=== PATIENT | female | born 1975 | race Hispanic/Latino ===

== ENCOUNTER 2016-08-19 15:20 | Inpatient (IN) | payer MEDICAID, OTHER ==
[2016-08-19 16:16] LABS: BASO % 0.3 % (0.0-2.0); EOS % 0.7 % (0.0-4.0); HEMATOCRIT 37.3 % (34.0-47.0); LYMPH # 3.1 K/uL (1.0-4.3); LYMPH % 47.1 % (20.0-40.0); MEAN CELL VOLUME 85.4 fL (81.0-99.0); MEAN CORPUSCULAR HEMOGLOBIN 27.6 pg (27.0-31.0); MEAN CORPUSCULAR HGB CONC 32.3 g/dL (33.0-37.0); MEAN PLATELET VOLUME 8.6 fL (7.2-11.7); MONO # 0.4 K/uL (0.0-0.8); MONO % 6.3 % (0.0-10.0); RED CELL DISTRIBUTION WIDTH 14.2 % (11.5-14.5); WHITE BLOOD COUNT 6.6 K/uL (4.8-10.8)
[2016-08-19 16:22] LABS: CHLORIDE 99 mmol/L (98-107); SODIUM 138 mmol/L (132-148)
[2016-08-19 16:23] LABS: POTASSIUM 3.1 mmol/L (3.6-5.2); URINE BACTERIA RARE (<OCC); URINE BILIRUBIN NEGATIVE (NEGATIVE); URINE BLOOD NEGATIVE (NEGATIVE); URINE COLOR Colorless (YELLOW); URINE GLUCOSE (UA) NORMAL (Normal); URINE KETONE NEGATIVE (NEGATIVE); URINE LEUKOCYTE ESTERASE NEG Leu/uL (Negative); URINE PROTEIN NEGATIVE (NEGATIVE); URINE UROBILINOGEN NORMAL mg/dL (0.2-1.0); WBC URINE < 1 /hpf (0-5)
[2016-08-19 16:25] LABS: ALB/GLOB RATIO 1.2 (1.0-2.1); ALKALINE PHOSPHATASE 86 U/L (38-126); ALT/SGPT 54 U/L (9-52); AST/SGOT 36 U/L (14-36); BILIRUBIN,TOTAL 0.2 mg/dL (0.2-1.3); BLOOD UREA NITROGEN 5 mg/dL (7-17); CARBON DIOXIDE 24 mmol/L (22-30); GFR AFRICAN-AMERICAN > 60; GLUCOSE,RANDOM 87 mg/dL (65-105); TOTAL PROTEIN 7.7 g/dL (6.3-8.3)
[2016-08-19 16:26] LABS: ALCOHOL SERUM < 10 mg/dl (0-10); CALCIUM 8.8 mg/dl (8.6-10.4)
--- NOTE | 2016-08-19 16:52 | C.PDOC ---
History Of Present Illness 40 y/o female presents to the ED requesting opiate detox. Pt is prescreened. States she uses pills, last use today. Pt was admitted here 03/2016 for the same but continued to use after discharge. Pt has no complaints at this time. Time Seen by Provider: 08/19/16 15:54 Chief Complaint (Nursing): Substance Abuse History Per: Patient History/Exam Limitations: no limitations Suicide/Self Injury Attempted (Context): None Modifying Factor(s): Narcotics Severity: Mild Involuntary Hold By: None Recent travel outside of the [place]: No Past Medical History Reviewed: Historical Data, Nursing Documentation, Vital Signs Vital Signs: Last Vital Signs Temp 99.1 F 08/19/16 18:06 Pulse 78 08/19/16 18:06 Resp 18 08/19/16 18:06 BP 108/75 08/19/16 18:06 Pulse Ox 98 08/19/16 18:12 - Medical History PMH: Anemia, Anxiety, Asthma, Hypothyroidism Surgical History: Cholecystectomy - [facility] Procedures ANESTH INJEC PERIPH NERV (07/19/13) CERVICAL SPINE X-RAY NEC (07/19/13) DETOXIFICATION SERVICES FOR SUBSTANCE ABUSE TREATMENT (04/02/16) GROUP MIXED CROP AND LIVESTOCK FARM WORKER FOR SUBSTANCE ABUSE TREATMENT, PSYCHOEDUCATION (04/02/16) IMMOBILIZ/WOUND ATTN NEC (01/05/13) INJECT STEROID (07/19/13) INJECT/INFUSE NEC (09/19/14) LAPAROSCOPIC CHOLECYSTECTOMY (09/01/13) PERIPH NERVE INJECT NEC (07/19/13) PSYCHIA INTERV/EVAL NEC (06/26/13) Family History: States: Unknown Family Hx - Social History Hx Tobacco Use: No Hx Alcohol Use: No Hx Substance Use: Yes - Immunization History Hx Tetanus Toxoid Vaccination: No Hx Influenza Vaccination: No Hx Pneumococcal Vaccination: Yes Review Of Systems Except As Marked, All Systems Reviewed And Found Negative. Physical Exam - Physical Exam Appears: Non-toxic, No Acute Distress Skin: Warm, Dry, No Rash Head: Atraumatic, Normacephalic Chest: Symmetrical Cardiovascular: Rhythm Regular, No Murmur Respiratory: Normal Breath Sounds, No Rales, No Rhonchi, No Wheezing Gastrointestinal/Abdominal: Soft Extremity: Bilateral: Atraumatic Neurological/Psych: Oriented x3, Normal Speech ED Course And Treatment - Laboratory Results Result Diagrams: 08/19/16 16:04 08/19/16 16:04 Lab Interpretation: Normal O2 Sat by Pulse Oximetry: 98 (on room air) Pulse Ox Interpretation: Normal Progress Note: Plan: medically clear for admission; labs, UA - Physician Consult Information Physician Contacted: Bernardo Shearer Outcome Of Conversation: admit Disposition Discussed With : Bernardo Shearer Doctor Will See Patient In The: Hospital - Disposition Disposition: HOSPITALIZED Disposition Time: 18:15 Condition: STABLE - POA Present On Arrival: None - Clinical Impression Clinical Impression: Drug abuse, Drug dependence, Opioid dependence - PA / INCIDENT ANALYST / Resident Statement MD/DO has reviewed & agrees with the documentation as recorded. - Scribe Statement The provider has reviewed the documentation as recorded by the Carlosibsolitario Deras All medical record entries made by the Carlosibsolitario were at my direction and personally dictated by me. I have reviewed the chart and agree that the record accurately reflects my personal performance of the history, physical exam, medical decision making, and the department course for this patient. I have also personally directed, reviewed, and agree with the discharge instructions and disposition. Decision To Admit - Pt Status Changed To: Hospital Disposition Of: Inpatient - Admit Certification Admit to Inpatient:: After my assessment, the patient will require hospitalization for at least two midnights. This is because of the severity of symptoms shown, intensity of services needed, and/or the medical risk in this patient being treated as an outpatient. - InPatient: Physician Admission Certification: I certify that this patient requires 2 or more midnights of care for the following reason:: opioid use disorder - . Bed Request Type: Detox Admitting Physician: Bernardo Shearer Patient Diagnosis: Drug abuse, Drug dependence, Opioid dependence
[2016-08-19] MEDS ORDERED: Potassium Chloride 20 mEq ER Tab PO STA (18:30)
[2016-08-19] MEDS ORDERED: Albuterol HFA 90 mcg/actuation (8 g) INH PRN (21:16)
[2016-08-19] MEDS ORDERED: Aluminum Hydroxide/Magnesium Hydroxide Susp (30 mL) PO PRN (21:55)
--- NOTE | 2016-08-20 16:31 | PCM.PSYCH ---
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 Patient reported she takes Fioricet 10 tablets daily, tramadol 10 tablets daily, each of 50 mg and also Tylenol plus codeine number for takes 10 tablets daily. Patient reports that she finish her medication and 5-6 days. She gets prescription for 2 weeks for each medication but she finish them and 5-6 days. Now she wants to stop using these medications as she is tired of taking these pills. Patient reported that before starting Tylenol or other medications she was prescribed Percocet after her foot surgery but later Percocet was stopped and put her on current medications but she started using them more than prescribed. Patient also reported history of depression and anxiety for last 3-4 years. She was following up at [facility]. Later patient stopped coming to [facility] and her case was closed. Reported she was getting Xanax and Effexor. No patient reports that her sleep is up and down, with decreased appetite and she lost about 75 pounds in over one year. Denied any current or past suicidal homicidal ideations or any suicidal attempts. Denied any psychotic or manic symptoms. Patient was born in [facility], migrated to [facility] at the age of 12 years. 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 She is and has 2 children aged 23 and 14 lives with the patient. Patient lives with her . Her height is 4 feet 11 inches and weight 145 pounds. Current Medications: Active Medications Generic Name Dose Route Start Last Admin Trade Name Freq PRN Reason Stop Dose Admin Al Hydrox/Mg Hydrox/Simethicone 30 ml 08/19/16 21:55 Maalox 30 Ml PO TID PRN Indigestion / Heartburn Albuterol 1 puff 08/19/16 21:16 Ventolin Hfa 90 Mcg/Actuation (8 G) INH RQ6 PRN Shortness of Breath Clonidine HCl 0.1 mg 08/19/16 21:55 Catapres PO Q8 PRN COWS Score More or Equal to 5 Gabapentin 300 mg 08/20/16 18:00 Neurontin PO BID OSWALDO Hydroxyzine HCl 25 mg 08/19/16 21:56 08/20/16 09:47 Atarax PO 25 mg Q6 PRN Administration Agitation Ibuprofen 600 mg 08/20/16 14:49 08/20/16 14:58 Motrin Tab PO 600 mg Q6 PRN Administration moderate pain Loperamide HCl 2 mg 08/19/16 21:55 Imodium PO Q8 PRN Diarrhea Methadone HCl 15 mg 08/21/16 10:30 Methadone PO 08/21/16 10:31 ONCE ONE Ondansetron HCl 4 mg 08/19/16 21:55 08/20/16 09:47 Zofran Tab PO 4 mg Q8 PRN Administration Nausea/Vomiting Pantoprazole Sodium 40 mg 08/20/16 16:30 Protonix Ec Tab PO DAILY OSWALDO Promethazine HCl 25 mg 08/19/16 21:55 Phenergan Inj IM QID PRN Nausea/Vomiting, Unable PO Trazodone HCl 100 mg 08/19/16 22:00 08/19/16 22:10 Desyrel PO 100 mg HS OSWALDO Administration Past Psychiatric History - Past Psychiatric History Previous Treatment History: Inpatient Prior Professional Help: 2 previous detox At [facility]: [facility] History of Abuse: None reported History of ETOH/Drug Use: See HPI History of Family Illness: Reported her nephew uses heroine and cocaine Pertinent Medical Hx (Current Medical&Sleep Prob, Allergies): Allergies Allergy/AdvReac Type Severity Reaction Status Date / Time No Known Allergies Allergy Verified 04/02/16 11:02 No Known Home Med 08/19/16 Asthma Hypothyroidism GERD Review of Systems - Psychiatric Psychiatric: Depression Mental Status Examination - Personal Presentation Personal Presentation: Looks stated age - Affect Affect: Depressed - Motor Activity Motor Activity: Calm - Reliability in Providing Information Reliability in Providing Information: Fair - Speech Speech: Organized - Mood Mood: Depressed - Formal Thought Process Formal Thought Process: No Impairment - Hallucinations/Delusions Hallucinations: Other (None reported) Delusions: Other - Obsessions/Compulsions Obsessions: None Compulsions: None - Cognitive Functions Orientation: Person, Place, Situation, Time Sensorium: Alert Attention/Concentration: Attentive Abstract Thinking: [place] Estimate of Intelligence: Average Judgement: Intact, as evidence by: Insight regarding need for hospitalization Memory: Recent intact, as evidence by: 3 object recall, Remote intact, as evidenced by: Ability to recall historical events - Risk Risk: Withdrawal, Diminished functioning - Strength & Assets Inventory Strength & Assets Inventory: Family support, Employment history, Cooperative - Limitations Limitations: Other DSM 5 DX - DSM 5 DSM 5 Diagnosis: Opiate use disorder - Recommended/Plan of Treatment Treatment Recommendations and Plan of Treatment: Patient education Supportive therapy We'll start methadone taper as patient preference methadone over Subutex Other when necessary medications Patient wants to go [facility] for follow-up care after discharge from the hospital. Patient reported in the past she was in [facility] Projected ELOS: 4-5 days Prognosis: Average - Smoking Cessation Smoking Cessation Initiated: No Reason for not providing: Patient doesn't smoke cigarettes
[2016-08-20] MEDS: Pantoprazole 40 mg EC Tab PO SCH (17:27)
[2016-08-21] MEDS: Pantoprazole 40 mg EC Tab PO SCH (09:11)
--- NOTE | 2016-08-21 12:36 | PCM.PYCHPN ---
Psychiatric Progress Note - Psychiatric Progress Note Patient seen today, length of contact: 15 minutes Patient Chief Complaint: I'm feeling much better Problems Identified/Issues Discussed: Patient seen. Chart reviewed. Case discussed with the staff. Issues related to illness and treatment were discussed with the patient. Reported compliant with treatment with no adverse affects. Tolerating treatment very well. Very mild withdrawal symptoms. At the time of evaluation, patient was awake alert oriented 3, had no delusions, no auditory or visual hallucinations, no suicidal ideations or homicidal ideations. Medical Problems: Migraine headache GERD Asthma Diagnostic Results: Reviewed DSM 5 Symptoms Update: Some improvement with treatment Medication Change: No Medical Record Reviewed: Yes Mental Status Examination - Cognitive Function Orientation: Person, Place, Situation, Time Memory: Intact Attention: WNL Concentration: WNL Association: WNL Fund of Knowledge: [facility] Decription of patient's judgement and insights: Fair - Mood Mood: Depressed (Much less than before) - Affect Affect: Depressed - Speech Speech: Appropriate - Formal Thought Process Formal Thought Process: No Impairment Psychotic Thoughts and Behaviors: None - Suicidal Ideation Suicidal Ideation: No - Homicidal Ideation Homicidal Ideation: No Goal/Treatment Plan - Goal/Treatment Plan Need for Continued Stay: Remain at risks for inpatient hospitalization, Discharge may exacerbated symptoms, Severe functional impairment Progress Toward Problem(s) and Goals/Treatment Plan: Patient education Supportive therapy Continue treatment as before Patient wants to go [facility] for follow-up care after discharge from the hospital. Patient reported in the past she was in [facility] Estimated Date of D/C: 08/24/16 - Smoking Cessation Smoking Cessation Initiated: No
[2016-08-22] MEDS: Pantoprazole 40 mg EC Tab PO SCH (09:48)
[2016-08-23] MEDS: Pantoprazole 40 mg EC Tab PO SCH (09:16)
--- NOTE | 2016-08-23 21:16 | PCM.PYCHPN ---
Psychiatric Progress Note - Psychiatric Progress Note Patient seen today, length of contact: 16 min Patient Chief Complaint: I am anxious Problems Identified/Issues Discussed: relapse prevention Medical Problems: nothing acute Diagnostic Results: reviewed DSM 5 Symptoms Update: some anxiety no mylagias or arthralgias Medication Change: Yes (methadone taper) Medical Record Reviewed: Yes Mental Status Examination - Cognitive Function Orientation: Place, Situation, Time Memory: Intact Attention: WNL Concentration: WNL Association: WNL Fund of Knowledge: WNL - Mood Mood: Anxious - Affect Affect: Blunted - Speech Speech: Appropriate - Formal Thought Process Formal Thought Process: No Impairment - Suicidal Ideation Suicidal Ideation: No - Homicidal Ideation Homicidal Ideation: No Goal/Treatment Plan - Goal/Treatment Plan Need for Continued Stay: Discharge may exacerbated symptoms, Severe functional impairment Progress Toward Problem(s) and Goals/Treatment Plan: opiate withdrawal- methadone taper opiate use disorder-groups, supportive psychotherapy NMI CBT Estimated Date of D/C: 08/24/16 - Smoking Cessation Smoking Cessation Initiated: No
--- NOTE | 2016-08-23 21:20 | PCM.PYCHPN ---
Psychiatric Progress Note - Psychiatric Progress Note Patient seen today, length of contact: 16 min Patient Chief Complaint: Ii am having trouble sleeping Problems Identified/Issues Discussed: PAWS Medical Problems: nothing acute Diagnostic Results: reviewed DSM 5 Symptoms Update: insomnia Medication Change: Yes (methadone taper) Medical Record Reviewed: Yes Mental Status Examination - Cognitive Function Orientation: Person, Place, Situation, Time Memory: Intact Attention: WNL Concentration: WNL Association: WNL Fund of Knowledge: WNL - Mood Mood: Anxious - Affect Affect: Blunted - Speech Speech: Appropriate - Formal Thought Process Formal Thought Process: No Impairment - Suicidal Ideation Suicidal Ideation: No - Homicidal Ideation Homicidal Ideation: No Goal/Treatment Plan - Goal/Treatment Plan Need for Continued Stay: Remain at risks for inpatient hospitalization, Discharge may exacerbated symptoms, Severe functional impairment Progress Toward Problem(s) and Goals/Treatment Plan: opiate withdrawal- methadone taper opiate use disorder-groups, supportive psychotherapy NMI CBT Estimated Date of D/C: 08/24/16 - Smoking Cessation Smoking Cessation Initiated: No
[2016-08-24 08:52] VITALS: BP 110/77; PULSE 81; RESP 16; TEMP 98.1; O2SAT 99
[2016-08-24] MEDS: Pantoprazole 40 mg EC Tab PO SCH (09:27)
--- NOTE | 2016-08-24 09:57 | PCM.PYCHDC ---
Mental Status Examination - Mental Status Examination Orientation: Person, Place, Situation, Time Memory: Intact Mood: Anxious Affect: Constricted Speech: Appropriate Attention: WNL Concentration: WNL Association: WNL Fund of Knowledge: WNL Formal Thought Process: No Impairment Suicidal Ideation: No Current Homicidal Ideation?: No Discharge Summary - Discharge Note Reason for Hospitalization: Barbiturate and opioid addiction. Psychiatric History (includes Medical, Family, Personal Hx): Depression, anxiety , freq. conflict with family, numerous relapses... Consultations:: List each consultation separately and include: 1. Reason for request. 2. Findings. 3. Follow-up Summary of Hospital Course include:: 1. Description of specific treatment plan utilized for patients during their course of treatmen. 2. Summarize the time- course for resolution of acute symptoms and/or regressed behaviors. 3. Describe issues identified and worked on during hospitalization. 4. Describe medication utilized. 5. Describe medical problems identified and treated. 6. Reassessment of suicide risk Summary of Hospital Course: The pt is seen today, chart reviewed and case discussed. She is well-known to the typewriter ribbon winder from previous admissions. She, again, relapsed on barbiturates (fioricet) and painkillers, plus some benzos, but this time she was referred by her IOP, [facility]. The pt was admitted and started on treatment with psychotherapy, support, psychoeducation and medications. OK and CBT used. The pt attended groups and activities, as well as milieu therapy. All the risks and benefits of medications are discussed and the patient understood and agreed. After care discussed with the patient and she chose to resume tx at [facility]. As before, she was med-seeking, at times splitting, but not agitated or disruptive. - Final Diagnosis (DSM 5) Condition upon Discharge: STABLE DSM 5: Opioid withdrawal Opioid use d/o - severe Sedative hypnotic use d/o - severe MDD CECILIA Borderline personality Disposition: HOME/ ROUTINE Follow-up Treatment Plan: Continue meds. She did not want a rx as she had them from [facility] Follow after care plan as discussed, at . Use relapse prevention skills Return to ER or call 911 if suicidal, homicidal or symptoms relapse. Stay away from stress, alcohol and drugs. - Smoking Cessation Smoking Cessation Medication prescribed: No - Antipsychotic Medications Pt discharged on 2 or more routine antipsychotic medications: No
== END 2016-08-24 09:45 | disposition home or self-care (01) | DRG 745 ==
LOC: C.ER 15:20 → C.7D 18:14
PROVIDERS: ADMIT Psychiatry & Neurology Psychiatry; ATTEND Psychiatry & Neurology Psychiatry
PROC: HZ46ZZZ Group Counseling for Substance Abuse Treatment, Psychoeducation (ICD-10-PCS; principal; 2016-08-19)
PROC: HZ42ZZZ Group Counseling for Substance Abuse Treatment, Cognitive-Behavioral (ICD-10-PCS; 2016-08-19)
PROC: HZ2ZZZZ Detoxification Services for Substance Abuse Treatment (ICD-10-PCS; 2016-08-19)
DX: F11.23 Opioid dependence with withdrawal (principal); F19.20 Other psychoactive substance dependence, uncomplicated; J45.909 Unspecified asthma, uncomplicated; E03.9 Hypothyroidism, unspecified; K21.9 Gastro-esophageal reflux disease without esophagitis; F41.9 Anxiety disorder, unspecified; F32.9 Major depressive disorder, single episode, unspecified; G43.909 Migraine, unspecified, not intractable, without status migrainosus; G47.00 Insomnia, unspecified

== ENCOUNTER 2016-09-21 08:48 | Inpatient (IN) | payer MEDICAID, OTHER ==
[2016-09-21 10:33] LABS: RBC URINE 7 /hpf (0-3); URINE BACTERIA OCC (<OCC); URINE BILIRUBIN NEGATIVE (NEGATIVE); URINE BLOOD 2+ (NEGATIVE); URINE COLOR Straw (YELLOW); URINE GLUCOSE (UA) NORMAL (Normal); URINE KETONE NEGATIVE (NEGATIVE); URINE LEUKOCYTE ESTERASE NEG Leu/uL (Negative); URINE PROTEIN NEGATIVE (NEGATIVE); URINE UROBILINOGEN NORMAL mg/dL (0.2-1.0); WBC URINE 1 /hpf (0-5)
[2016-09-21 10:55] LABS: BASO % 0.3 % (0.0-2.0); EOS % 0.8 % (0.0-4.0); HEMATOCRIT 35.5 % (34.0-47.0); LYMPH # 2.5 K/uL (1.0-4.3); MEAN CELL VOLUME 86.9 fL (81.0-99.0); MEAN CORPUSCULAR HEMOGLOBIN 28.1 pg (27.0-31.0); MEAN CORPUSCULAR HGB CONC 32.3 g/dL (33.0-37.0); MEAN PLATELET VOLUME 8.7 fL (7.2-11.7); MONO # 0.3 K/uL (0.0-0.8); MONO % 5.8 % (0.0-10.0); RED CELL DISTRIBUTION WIDTH 14.5 % (11.5-14.5); WHITE BLOOD COUNT 5.6 K/uL (4.8-10.8)
[2016-09-21 11:02] LABS: CHLORIDE 103 mmol/L (98-107); SODIUM 139 mmol/L (132-148)
[2016-09-21 11:04] LABS: BILIRUBIN,TOTAL 0.3 mg/dL (0.2-1.3); CARBON DIOXIDE 26 mmol/L (22-30); GFR AFRICAN-AMERICAN > 60
[2016-09-21 11:05] LABS: ALB/GLOB RATIO 1.1 (1.0-2.1); ALKALINE PHOSPHATASE 81 U/L (38-126); ALT/SGPT 34 U/L (9-52); AST/SGOT 25 U/L (14-36); BLOOD UREA NITROGEN 5 mg/dL (7-17); CALCIUM 8.4 mg/dl (8.6-10.4); GLUCOSE,RANDOM 86 mg/dL (65-105); TOTAL PROTEIN 7.4 g/dL (6.3-8.3)
[2016-09-21 11:06] LABS: ALCOHOL SERUM < 10 mg/dl (0-10)
--- NOTE | 2016-09-21 11:15 | C.PDOC ---
History Of Present Illness The patient, a 41 y/o female, presents to the ED for evaluation of depression which began around 1 month ago. Patient admits she has been taking opiates and states they have been making her symptoms much worse. Patient now reports to the ED for evaluation before her symptoms worsen or progress into suicidal ideation. Patient denies suicidal/homicidal ideation and has no physical complaints at this time. Time Seen by Provider: 09/21/16 09:21 Chief Complaint (Nursing): Psychiatric Evaluation History Per: Patient History/Exam Limitations: no limitations Onset/Duration Of Symptoms: Other (1 month ) Current Symptoms Are (Timing): Still Present Suicide/Self Injury Attempted (Context): None Modifying Factor(s): Other (+opiates ) Associated Symptoms: denies: Suicidal Thoughts, Suicidal Plan Involuntary Hold By: None Recent travel outside of the [place]: No Additional History Per: Patient Past Medical History Reviewed: Historical Data, Nursing Documentation, Vital Signs Vital Signs: Last Vital Signs Temp 98.4 F 09/21/16 08:54 Pulse 75 09/21/16 08:54 Resp 18 09/21/16 08:54 BP 131/83 09/21/16 08:54 Pulse Ox 100 09/21/16 11:20 - Medical History PMH: Anemia, Anxiety, Asthma, Depression, Hypothyroidism Denies: Diabetes, Hepatitis, HIV, HTN, Chronic Kidney Disease, Seizures, Sexually Transmitted Disease Surgical History: Cholecystectomy - [facility] Procedures ANESTH INJEC PERIPH NERV (07/19/13) CERVICAL SPINE X-RAY NEC (07/19/13) DETOXIFICATION SERVICES FOR SUBSTANCE ABUSE TREATMENT (08/19/16) GROUP PROGRAM DIRECTOR/TRAFFIC DIRECTOR FOR SUBSTANCE ABUSE TREATMENT, PSYCHOEDUCATION (08/19/16) GROUP PROGRAM DIRECTOR/TRAFFIC DIRECTOR FOR SUBSTANCE ABUSE, COGNITIVE BEHAVIORAL (08/19/16) IMMOBILIZ/WOUND ATTN NEC (01/05/13) INJECT STEROID (07/19/13) INJECT/INFUSE NEC (09/19/14) LAPAROSCOPIC CHOLECYSTECTOMY (09/01/13) PERIPH NERVE INJECT NEC (07/19/13) PSYCHIA INTERV/EVAL NEC (06/26/13) Family History: States: Unknown Family Hx - Social History Hx Tobacco Use: No Hx Alcohol Use: No Hx Substance Use: Yes - Immunization History Hx Tetanus Toxoid Vaccination: Yes Hx Influenza Vaccination: Yes Hx Pneumococcal Vaccination: Yes Review Of Systems Except As Marked, All Systems Reviewed And Found Negative. Psych: Positive for: Depression. Negative for: Suicidal ideation Physical Exam - Physical Exam Appears: Non-toxic, No Acute Distress, Other (+depressed ) Skin: Normal Color, Warm, Dry Head: Atraumatic, Normacephalic Eye(s): bilateral: Normal Inspection, EOMI Oral Mucosa: Moist Neck: Normal ROM Chest: Symmetrical, No Deformity, No Tenderness Cardiovascular: Rhythm Regular, No Murmur Respiratory: Normal Breath Sounds, No Rales, No Rhonchi, No Wheezing Extremity: Normal ROM, No Tenderness, No Deformity, No Swelling Neurological/Psych: Oriented x3, Normal Speech, Other (+flat affect ) Gait: Steady ED Course And Treatment - Laboratory Results Result Diagrams: 09/21/16 10:50 09/21/16 10:50 Lab Interpretation: No Acute Changes O2 Sat by Pulse Oximetry: 100 (on RA) Pulse Ox Interpretation: Normal Medical Decision Making Medical Decision Making: Impression: 41 y/o female with depression Plan: * labs * Crisis evaluation Progress Notes: Labs ordered and reviewed. In my clinical judgment patient is medically cleared and stable for psychiatric admission. day worker contacted for evaluation. As per CW patient is to be admitted to psych unit under Dr Shearer service Disposition - Disposition Disposition: HOSPITALIZED Disposition Time: 12:18 Condition: STABLE - POA Present On Arrival: None - Clinical Impression Clinical Impression: Opioid dependence, Depression - PA / PROVIDER ENROLLMENT SPECIALIST / Resident Statement MD/DO has reviewed & agrees with the documentation as recorded. - Scribe Statement The provider has reviewed the documentation as recorded by the Scribe (Katelynn Rachel) All medical record entries made by the Scribe were at my direction and personally dictated by me. I have reviewed the chart and agree that the record accurately reflects my personal performance of the history, physical exam, medical decision making, and the department course for this patient. I have also personally directed, reviewed, and agree with the discharge instructions and disposition.
--- NOTE | 2016-09-22 23:36 | PCM.PSYCH ---
Initial Psychiatric Evaluation - Initial Psychiatric Evaluation Type of Admission: Voluntary Legal Status: Capacity Chief Complaint (in patient's own words): "I was very depressed" History of Present Illness and Precipitating Events: The pt is seen, chart reviewed, case discussed. She is well-known to the technical writer from multiple detox admissions. 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 She says she broke up with her and her other child is an adult. She has chronic relational problems with her mother The patient is taking around 7 Tylenol with Codeine a day, and she also takes Fioricet, but less 3-4 a day. She admitted she would lie to get rx. She has tried detox before including [facility] and very recently. She has never been to rehab or NA. She claims she returned to [facility] but they wouldn't take her b/c she had methadone in her Utox (right out of detox) and also she was expecting a lipoma removal from skin and she implied she may be given narcotic painkillers. She got depressed and "relapsed" after the rejection. She denies any prior psychiatric admissions. She has not taken any other drugs , does not smoke, and does not drink alcohol. She began smoking MJ lately. Past psych: Generalized anxiety and depression. Family psych: Denies Medical: Asthma, Hypothyroidism, GERD Current Medications: Active Medications Generic Name Dose Route Start Last Admin Trade Name Freq PRN Reason Stop Dose Admin Clonidine HCl 0.1 mg 09/21/16 14:08 Catapres PO Q6 PRN Opiate reversal Diphenhydramine HCl 50 mg 09/21/16 14:07 Benadryl PO Q6 PRN Extra Pyramidal Symptoms Escitalopram Oxalate 5 mg 09/22/16 12:45 09/22/16 12:39 Lexapro PO 5 mg DAILY OSWALDO Administration Famotidine 20 mg 09/21/16 18:00 09/22/16 20:10 Pepcid PO Not Given BID OSWALDO Gabapentin 300 mg 09/22/16 14:00 09/22/16 20:08 Neurontin PO 300 mg TID OSWALDO Administration Ibuprofen 600 mg 09/22/16 16:23 09/22/16 20:48 Motrin Tab PO 600 mg Q6 PRN Administration Pain, moderate (4-7) Loperamide HCl 2 mg 09/21/16 14:07 09/21/16 20:38 Imodium PO 2 mg Q8 PRN Administration Diarrhea Methadone HCl 10 mg 09/23/16 10:00 Methadone PO 09/25/16 09:59 Q24H OSWALDO Taper Ondansetron HCl 4 mg 09/21/16 14:07 Zofran Tab PO Q8H PRN Nausea/Vomiting Trazodone HCl 50 mg 09/21/16 22:00 09/22/16 20:48 Desyrel PO 50 mg HS OSWALDO Administration Past Psychiatric History - Past Psychiatric History Previous Treatment History: None Pertinent Medical Hx (Current Medical&Sleep Prob, Allergies): Allergies Allergy/AdvReac Type Severity Reaction Status Date / Time No Known Allergies Allergy Verified 09/21/16 08:54 No Known Home Med 08/19/16 Review of Systems - Psychiatric Psychiatric: Abnormal Sleep Pattern, Anhedonia, Anxiety, Change in Appetite, Depression, Difficulty Concentrating. absent: Hallucinations, Homicidal Ideation, Paranoia, Suicidal Ideation Mental Status Examination - Personal Presentation Personal Presentation: Looks stated age - Affect Affect: Constricted - Motor Activity Motor Activity: Calm - Reliability in Providing Information Reliability in Providing Information: Fair - Speech Speech: Organized - Mood Mood: Depressed, Anxious - Formal Thought Process Formal Thought Process: No Impairment - Cognitive Functions Orientation: Person, Place, Situation, Time Sensorium: Alert Attention/Concentration: Attentive Estimate of Intelligence: Average Judgement: Intact, as evidence by: Insight regarding need for hospitalization Memory: Recent intact, as evidence by: Ability to recall events of the day, Remote intact, as evidenced by: Ability to recall historical events - Risk Risk: Diminished functioning - Strength & Assets Inventory Strength & Assets Inventory: Employment history, Cooperative - Limitations Limitations: Living alone DSM 5 DX - DSM 5 DSM 5 Diagnosis: Major depression, recurrent, severe CECILIA Sedative hypnotic use d/o - moderate Cannabis use d/o - moderate Opioid use d/o - severe Opioid withdrawal Personality d/o - unspecified - Recommended/Plan of Treatment Treatment Recommendations and Plan of Treatment: Depression: -Lexapro -CBT and support -Attend groups and activities Opioids: - Short methaodne detox - [place] for abstinence - Refer to rehab Sedative hypnotics: - No wdw sxs so far, monitor sxs - Gabapentin - [place] for abstinence 33 min Projected ELOS: 5 days Prognosis: good Discharge Plan and Discharge Criteria: no significant dep sxs - Smoking Cessation Smoking Cessation Initiated: Yes
--- NOTE | 2016-09-23 12:57 | PCM.PYCHPN ---
Psychiatric Progress Note - Psychiatric Progress Note Patient seen today, length of contact: 17 min Patient Chief Complaint: "I am not well" Problems Identified/Issues Discussed: The pt is seen, chart reviewed and case discussed. The pt is improving with medications and no breakthrough sxs reported or noted. No SEs from meds Support and psychoed given NC and CBt used After care discussed and she wants to do "short term rehab" which is only because [facility] is now on her case. She is also upset that [facility] was called She agreed with a family meeting, which will be arranged for Wednesday 11 am She still gives different accounts of why she is not accepted to [facility] Medication Change: Yes Medical Record Reviewed: Yes Mental Status Examination - Cognitive Function Orientation: Person, Place, Situation, Time Memory: Intact Attention: WNL Concentration: Poor Association: WNL Fund of Knowledge: WNL - Mood Mood: Depressed, Anxious - Affect Affect: Constricted - Speech Speech: Appropriate - Formal Thought Process Formal Thought Process: No Impairment - Suicidal Ideation Suicidal Ideation: No - Homicidal Ideation Homicidal Ideation: No Goal/Treatment Plan - Goal/Treatment Plan Need for Continued Stay: Discharge may exacerbated symptoms, Severe functional impairment Progress Toward Problem(s) and Goals/Treatment Plan: Depression: -Lexapro -CBT and support -Attend groups and activities Opioids: - Short methadone detox - [place] for abstinence - Refer to rehab Sedative hypnotics: - No wdw sxs so far, monitor sxs - Gabapentin - [place] for abstinence Estimated Date of D/C: 09/28/16
--- NOTE | 2016-09-24 12:52 | PCM.PYCHPN ---
Psychiatric Progress Note - Psychiatric Progress Note Patient seen today, length of contact: 18 min Patient Chief Complaint: "I want to leave tomorrow" Problems Identified/Issues Discussed: The pt is seen, chart reviewed and case discussed. The pt is improving with medications and no breakthrough sxs reported or noted. She feels anxious and dizzy at times No SEs from meds, except for dizziness Support and psychoed given Family meeting is scheduled for tomorrow She says she wants to go to a rehab but she immediately asks "Can I see Dr. Dumont if I can't?" How to stay away from controlled substances discussed. Medication Change: Yes Medical Record Reviewed: Yes Mental Status Examination - Cognitive Function Orientation: Person, Place, Situation, Time Memory: Intact Attention: WNL Concentration: Poor Association: WNL Fund of Knowledge: WNL - Mood Mood: Depressed, Anxious - Affect Affect: Constricted - Speech Speech: Appropriate - Formal Thought Process Formal Thought Process: No Impairment - Suicidal Ideation Suicidal Ideation: No - Homicidal Ideation Homicidal Ideation: No Goal/Treatment Plan - Goal/Treatment Plan Need for Continued Stay: Discharge may exacerbated symptoms, Severe functional impairment Progress Toward Problem(s) and Goals/Treatment Plan: Depression: -Lexapro -CBT and support -Attend groups and activities Opioids: - Short methadone detox - [place] for abstinence - Refer to rehab Sedative hypnotics: - No wdw sxs so far, monitor sxs - Gabapentin is decreased due to dizziness - [place] for abstinence Estimated Date of D/C: 09/25/16
--- NOTE | 2016-09-25 12:43 | PCM.PYCHPN ---
Psychiatric Progress Note - Psychiatric Progress Note Patient seen today, length of contact: 33 min Patient Chief Complaint: "I am very nervous" Problems Identified/Issues Discussed: The pt is seen, chart reviewed and case discussed. We held a meeting with her sister Jaycee and mother, and her child protective services worker. She was tearful, sometimes angry and sometimes sullen during the meeting. She admitted that she needed help and that she is now more motivated and wants to go to a treatments because of herself not because other people ask her to do. She acknowledged that she was drunk [facility] early last year but is willing to try other rehabs as well. [facility] [employer] worker will also help with funding perhaps. She will go to [facility] until she starts a rehabilitation. Support and psychoeducation given IA used No side effects from medications. Medication Change: Yes (increase lexapro) Medical Record Reviewed: Yes Mental Status Examination - Cognitive Function Orientation: Person, Place, Situation, Time Memory: Intact Attention: WNL Concentration: Poor Association: WNL Fund of Knowledge: WNL - Mood Mood: Depressed, Anxious - Affect Affect: Constricted - Speech Speech: Appropriate - Formal Thought Process Formal Thought Process: No Impairment - Suicidal Ideation Suicidal Ideation: No - Homicidal Ideation Homicidal Ideation: No Goal/Treatment Plan - Goal/Treatment Plan Need for Continued Stay: Discharge may exacerbated symptoms, Severe functional impairment Progress Toward Problem(s) and Goals/Treatment Plan: Depression: -Lexapro 10 mg now -CBT and support -Attend groups and activities Opioids: - Short methadone detox - [place] for abstinence - Refer to rehab Sedative hypnotics: - No wdw sxs so far, monitor sxs - Gabapentin is decreased due to dizziness - [place] for abstinence Estimated Date of D/C: 09/28/16
[2016-09-26 07:38] VITALS: O2SAT 99
[2016-09-27 07:51] VITALS: RESP 16
--- NOTE | 2016-09-28 05:41 | PCM.PYCHPN ---
Psychiatric Progress Note - Psychiatric Progress Note Patient seen today, length of contact: 15 min Patient Chief Complaint: i was depresseed and i relapsed on narcotics. Problems Identified/Issues Discussed: PAWS symptom management Medical Problems: nothing acute Diagnostic Results: reviwed DSM 5 Symptoms Update: improving motivation pmproving energy Medication Change: No Medical Record Reviewed: Yes Mental Status Examination - Cognitive Function Orientation: Person, Place, Situation, Time Memory: Intact Attention: WNL Concentration: Poor Association: WNL Fund of Knowledge: WNL - Mood Mood: Depressed, Anxious - Affect Affect: Constricted - Speech Speech: Appropriate - Formal Thought Process Formal Thought Process: No Impairment - Suicidal Ideation Suicidal Ideation: No - Homicidal Ideation Homicidal Ideation: No Goal/Treatment Plan - Goal/Treatment Plan Need for Continued Stay: Discharge may exacerbated symptoms, Severe functional impairment Progress Toward Problem(s) and Goals/Treatment Plan: feeling less hopeless, helplessand worthless Estimated Date of D/C: 09/28/16 - Smoking Cessation Smoking Cessation Initiated: No
--- NOTE | 2016-09-28 05:49 | PCM.PYCHPN ---
Psychiatric Progress Note - Psychiatric Progress Note Patient seen today, length of contact: 15 min Patient Chief Complaint: iI don't know my meds. Problems Identified/Issues Discussed: med education and whatv each med is for Medical Problems: nothing acute Diagnostic Results: reviewed Medication Change: No Medical Record Reviewed: Yes Mental Status Examination - Cognitive Function Orientation: Person, Place, Situation, Time Memory: Intact Attention: WNL Concentration: Poor Association: WNL Fund of Knowledge: WNL - Mood Mood: Anxious - Affect Affect: Constricted - Speech Speech: Appropriate - Formal Thought Process Formal Thought Process: No Impairment - Suicidal Ideation Suicidal Ideation: No - Homicidal Ideation Homicidal Ideation: No Goal/Treatment Plan - Goal/Treatment Plan Need for Continued Stay: Remain at risks for inpatient hospitalization, Discharge may exacerbated symptoms, Severe functional impairment Progress Toward Problem(s) and Goals/Treatment Plan: sleeping and eating s0-so Estimated Date of D/C: 09/28/16 - Smoking Cessation Smoking Cessation Initiated: No
[2016-09-28 08:04] VITALS: BP 103/67; PULSE 80; TEMP 96
--- NOTE | 2016-09-28 09:52 | PCM.PYCHDC ---
Mental Status Examination - Mental Status Examination Orientation: Person, Place, Situation, Time Memory: Intact Mood: Anxious Affect: Constricted Speech: Appropriate Attention: WNL Concentration: WNL Association: WNL Fund of Knowledge: WNL Formal Thought Process: No Impairment Suicidal Ideation: No Current Homicidal Ideation?: No Discharge Summary - Discharge Note Reason for Hospitalization: Depression, suicidal threat, substance use Consultations:: List each consultation separately and include: 1. Reason for request. 2. Findings. 3. Follow-up Summary of Hospital Course include:: 1. Description of specific treatment plan utilized for patients during their course of treatmen. 2. Summarize the time- course for resolution of acute symptoms and/or regressed behaviors. 3. Describe issues identified and worked on during hospitalization. 4. Describe medication utilized. 5. Describe medical problems identified and treated. 6. Reassessment of suicide risk Summary of Hospital Course: The pt is seen, chart reviewed, case discussed. On admission: She is well-known to the telegraphic typewriter operator from multiple detox admissions. 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 She says she broke up with her and her other child is an adult. She has chronic relational problems with her mother The patient is taking around 7 Tylenol with Codeine a day, and she also takes Fioricet, but less 3-4 a day. She admitted she would lie to get rx. She has tried detox before including and very recently. She has never been to rehab or NA. She claims she returned to [facility] but they wouldn't take her b/c she had methadone in her Utox (right out of detox) and also she was expecting a lipoma removal from skin and she implied she may be given narcotic painkillers. She got depressed and "relapsed" after the rejection. She denies any prior psychiatric admissions. She has not taken any other drugs , does not smoke, and does not drink alcohol. She began smoking MJ lately. Past psych: Generalized anxiety and depression. Family psych: Denies Medical: Asthma, Hypothyroidism, GERD Hospital course: The pt was admitted and started on treatment with psychotherapy, support, psychoeducation and medications. CA and CBT used. The pt attended groups and activities, as well as milieu therapy. All the risks and benefits of medications are discussed and the patient understood and agreed. After care discussed with the patient. She is on the wait list for [facility] but will go to [facility] in . We held a big meeting with [facility] worker, Jeanette, her mother and sister Jaycee. She was defensive at times but did hear about how her addiction affects her family and 14 y/o son. She is not an imminent risk to him and her 22 yo son is also of help. However she understands that she should do her best to receive treatment and stay clean in order to be a good parent. - Final Diagnosis (DSM 5) Condition upon Discharge: STABLE DSM 5: Major depression, recurrent, severe CECILIA Sedative hypnotic use d/o - moderate Cannabis use d/o - moderate Opioid use d/o - severe Opioid withdrawal Borderline pers. d/o Disposition: HOME/ ROUTINE Follow-up Treatment Plan: Continue below medications after discharge. Follow after care plan as discussed at [facility] until [facility] [place] Use relapse prevention skills Return to ER or call 911 if suicidal, homicidal or symptoms relapse. Stay away from stress, alcohol and drugs. Prescriptions/Medication Reconciliation: Escitalopram [Lexapro] 10 mg PO DAILY #30 tab Famotidine [Pepcid] 20 mg PO BID #60 tab Gabapentin [Neurontin] 100 mg PO TID #90 cap traZODone [Desyrel] 100 mg PO HS #30 tab - Smoking Cessation Smoking Cessation Medication prescribed: No - Antipsychotic Medications Pt discharged on 2 or more routine antipsychotic medications: No
== END 2016-09-28 11:17 | disposition home or self-care (01) | DRG 430 ==
LOC: C.ER 08:48 → C.9E 12:18 → C.5E 12:55
PROVIDERS: ADMIT Psychiatry & Neurology Psychiatry; ATTEND Psychiatry & Neurology Psychiatry
PROC: HZ2ZZZZ Detoxification Services for Substance Abuse Treatment (ICD-10-PCS; principal; 2016-09-21)
PROC: HZ81ZZZ Medication Management for Substance Abuse Treatment, Methadone Maintenance (ICD-10-PCS; 2016-09-21)
DX: F33.2 Major depressive disorder, recurrent severe without psychotic features (principal); F11.23 Opioid dependence with withdrawal; E03.9 Hypothyroidism, unspecified; F41.1 Generalized anxiety disorder; K21.9 Gastro-esophageal reflux disease without esophagitis; J45.909 Unspecified asthma, uncomplicated; F12.90 Cannabis use, unspecified, uncomplicated

== ENCOUNTER 2016-10-30 19:14 | Inpatient (IN) | payer MEDICAID, OTHER ==
--- NOTE | 2016-10-30 20:45 | C.PDOC ---
History Of Present Illness Patient presents to the ER stating she is depressed. Denies suicidal or homicidal ideation. Time Seen by Provider: 10/30/16 20:44 Chief Complaint (Nursing): Psychiatric Evaluation History Per: Patient History/Exam Limitations: no limitations Onset/Duration Of Symptoms: Hrs Current Symptoms Are (Timing): Still Present Suicide/Self Injury Attempted (Context): None Modifying Factor(s): None Severity: None Pain Scale Rating Of: 0 Associated Symptoms: Depression. denies: Suicidal Thoughts, Suicidal Plan Involuntary Hold By: None Recent travel outside of the [place]: No Past Medical History Reviewed: Historical Data, Nursing Documentation, Vital Signs Vital Signs: Last Vital Signs Temp 98.4 F 10/31/16 00:11 Pulse 61 10/31/16 00:11 Resp 20 10/31/16 00:11 BP 90/51 L 10/31/16 00:11 Pulse Ox 97 10/31/16 00:11 - Medical History PMH: Anemia, Asthma (Combivent Inhaler), Depression, Hypothyroidism, Migraine Surgical History: Cholecystectomy - [facility] Procedures ANESTH INJEC PERIPH NERV (07/19/13) CERVICAL SPINE X-RAY NEC (07/19/13) DETOXIFICATION SERVICES FOR SUBSTANCE ABUSE TREATMENT (09/21/16) GROUP ASSORTER FOR SUBSTANCE ABUSE TREATMENT, PSYCHOEDUCATION (08/19/16) GROUP ASSORTER FOR SUBSTANCE ABUSE, COGNITIVE BEHAVIORAL (08/19/16) IMMOBILIZ/WOUND ATTN NEC (01/05/13) INJECT STEROID (07/19/13) INJECT/INFUSE NEC (09/19/14) LAPAROSCOPIC CHOLECYSTECTOMY (09/01/13) MEDS MGMT FOR SUBSTANCE ABUSE TREATMENT, METHADONE MAINT (09/21/16) PERIPH NERVE INJECT NEC (07/19/13) PSYCHIA INTERV/EVAL NEC (06/26/13) Family History: States: No Known Family Hx - Social History Hx Tobacco Use: No Hx Alcohol Use: Yes Hx Substance Use: Yes - Immunization History Hx Tetanus Toxoid Vaccination: Yes Hx Influenza Vaccination: Yes Hx Pneumococcal Vaccination: Yes Review Of Systems Constitutional: Negative for: Fever, Chills Eyes: Negative for: Vision Change Respiratory: Negative for: Shortness of Breath Gastrointestinal: Negative for: Nausea, Vomiting, Diarrhea Musculoskeletal: Negative for: Back Pain Skin: Negative for: Rash Neurological: Negative for: Dizziness Psych: Positive for: Depression. Negative for: Suicidal ideation Physical Exam - Physical Exam Appears: Non-toxic Skin: Warm, Dry Head: Normacephalic Eye(s): bilateral: Normal Inspection, PERRL, EOMI Oral Mucosa: Moist Neck: Supple Chest: Symmetrical, No Tenderness Cardiovascular: Rhythm Regular, No Murmur Respiratory: No Rales, No Rhonchi, No Wheezing Gastrointestinal/Abdominal: Soft, No Tenderness Back: Normal Inspection Extremity: Normal ROM Extremity: Bilateral: Normal Color And Temperature Neurological/Psych: Oriented x3, Normal Speech, Normal Cognition Gait: Steady ED Course And Treatment - Laboratory Results Result Diagrams: 10/30/16 21:19 10/30/16 21:19 O2 Sat by Pulse Oximetry: 100 (Room air) Pulse Ox Interpretation: Normal Progress Note: Fioricet PO administered. Disposition Discussed With : Jesús Dumont Comment: accepted the pt on his service and took over the care at 12:28AM Doctor Will See Patient In The: Hospital Counseled Patient/Family Regarding: Studies Performed, Diagnosis - Disposition Disposition: HOSPITALIZED Disposition Time: 20:45 Condition: FAIR - POA Present On Arrival: Poor Glycemic Control - Clinical Impression Clinical Impression: Depression - Scribe Statement The provider has reviewed the documentation as recorded by the Scribe Kristian Grover All medical record entries made by the Scribe were at my direction and personally dictated by me. I have reviewed the chart and agree that the record accurately reflects my personal performance of the history, physical exam, medical decision making, and the department course for this patient. I have also personally directed, reviewed, and agree with the discharge instructions and disposition. Decision To Admit - Pt Status Changed To: Hospital Disposition Of: Inpatient - Admit Certification Admit to Inpatient:: After my assessment, the patient will require hospitalization for at least two midnights. This is because of the severity of symptoms shown, intensity of services needed, and/or the medical risk in this patient being treated as an outpatient. - InPatient: Physician Admission Certification: I certify that this patient requires 2 or more midnights of care for the following reason:: After my assessment, the patient will require hospitalization for at least two midnights. This is because of the severity of symptoms shown, intensity of services needed, and/or the medical risk in this patient being treated as an outpatient. - . Bed Request Type: Psychiatry Admitting Physician: Jesús Dumont Patient Diagnosis: Depression
[2016-10-30 21:22] LABS: BASO % 0.5 % (0.0-2.0); EOS % 0.4 % (0.0-4.0); HEMATOCRIT 34.6 % (34.0-47.0); LYMPH # 3.2 K/uL (1.0-4.3); MEAN CELL VOLUME 87.1 fL (81.0-99.0); MEAN CORPUSCULAR HEMOGLOBIN 28.1 pg (27.0-31.0); MEAN CORPUSCULAR HGB CONC 32.2 g/dL (33.0-37.0); MEAN PLATELET VOLUME 8.4 fL (7.2-11.7); MONO # 0.3 K/uL (0.0-0.8); RED CELL DISTRIBUTION WIDTH 14.1 % (11.5-14.5); WHITE BLOOD COUNT 6.4 K/uL (4.8-10.8)
[2016-10-30 21:30] LABS: CHLORIDE 105 mmol/L (98-107); POTASSIUM 3.4 mmol/L (3.6-5.2); SODIUM 137 mmol/L (132-148)
[2016-10-30 21:32] LABS: ALB/GLOB RATIO 1.1 (1.0-2.1); ALKALINE PHOSPHATASE 65 U/L (38-126); AST/SGOT 15 U/L (14-36); BILIRUBIN,TOTAL 0.4 mg/dL (0.2-1.3); CARBON DIOXIDE 23 mmol/L (22-30); GFR AFRICAN-AMERICAN > 60; TOTAL PROTEIN 6.8 g/dL (6.3-8.3)
[2016-10-30 21:33] LABS: ALT/SGPT 23 U/L (9-52); BLOOD UREA NITROGEN 3 mg/dL (7-17); GLUCOSE,RANDOM 128 mg/dL (65-105)
[2016-10-30 21:34] LABS: ALCOHOL SERUM < 10 mg/dl (0-10)
[2016-10-30 21:39] LABS: RBC URINE < 1 /hpf (0-3); URINE BILIRUBIN NEGATIVE (NEGATIVE); URINE BLOOD NEGATIVE (NEGATIVE); URINE COLOR Straw (YELLOW); URINE GLUCOSE (UA) NORMAL (Normal); URINE KETONE NEGATIVE (NEGATIVE); URINE LEUKOCYTE ESTERASE NEG Leu/uL (Negative); URINE PROTEIN NEGATIVE (NEGATIVE); URINE UROBILINOGEN NORMAL mg/dL (0.2-1.0); WBC URINE 2 /hpf (0-5)
[2016-10-30] MEDS ORDERED: Apap-Butalbital-Caffeine 325-50-40mg Tab PO STA (22:03)
[2016-10-30] MEDS ORDERED: Apap-Butalbital-Caffeine 325-50-40mg Tab ONE (22:09)
[2016-10-31 00:28] VITALS: O2SAT 100
[2016-10-31] MEDS ORDERED: Pneumococcal 23-Valent Vaccine IM ONE (02:04)
[2016-10-31] MEDS ORDERED: Apap-Butalbital-Caffeine 325-50-40mg Tab PO STA (08:52)
--- NOTE | 2016-10-31 18:47 | PCM.PSYCH ---
Initial Psychiatric Evaluation - Initial Psychiatric Evaluation Type of Admission: Voluntary Legal Status: Capacity Chief Complaint (in patient's own words): I was not sleeping for last 3 days and I took 3 trazodone each of 150 mg to get some sleep. Current Medications: Active Medications Generic Name Dose Route Start Last Admin Trade Name Freq PRN Reason Stop Dose Admin Acetaminophen 650 mg 10/31/16 17:19 Tylenol 325mg Tab PO Q6 PRN Headache Escitalopram Oxalate 10 mg 11/01/16 10:00 Lexapro PO DAILY OSWALDO Ibuprofen 600 mg 10/31/16 17:19 10/31/16 17:56 Motrin Tab PO 600 mg Q6 PRN Administration Pain, moderate (4-7) Trazodone HCl 150 mg 10/31/16 01:39 Desyrel PO HS PRN Insomnia Past Psychiatric History - Past Psychiatric History Pertinent Medical Hx (Current Medical&Sleep Prob, Allergies): Allergies Allergy/AdvReac Type Severity Reaction Status Date / Time sertraline [From Zoloft] Allergy Intermediate RASH Verified 10/31/16 12:39 traZODone [Desyrel] 100 mg PO HS #30 tab 09/28/16 Ferrous Fumarate [Ferrocite] 2 tab PO PRN PRN 10/30/16
--- NOTE | 2016-10-31 18:52 | PCM.PSYCH ---
Initial Psychiatric Evaluation - Initial Psychiatric Evaluation Type of Admission: Voluntary Legal Status: Capacity Chief Complaint (in patient's own words): I was not sleeping for last 3 days and I took 3 trazodone each of 150 mg to get some sleep. History of Present Illness and Precipitating Events: Patient is a 41 years old, , [place] [employer] [facility] who was admitted due to suspected overdose on her sleeping medications, patient has history of major depressive disorder and also opiate use disorder started following up at [facility]. Patient reported that she is feeling depressed pressed, was unable to sleep for last 3 days and she took 3 trazodone age of 150 mg yesterday morning in order to sleep. Family phone the patient on stable, staggering, difficulty sleeping and was brought to ER for evaluation and was admitted. Patient reported decrease appetite and lost about 10 pounds in 1 week due to not eating. Denied any suicidal or homicidal ideations or any attempts. Denied any psychotic or manic symptoms. But has history of previous detox from opiate pain medications. Patient was also taking Fioricet according to history patient was taking up to 10 Fioricet daily patient denied. Patient has history of 3 left foot surgeries, 2 C-sections and cholecystectomy. Patient was born in [facility], moved to [facility] at the age of 12 with family. 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 She is and lives with her older son who is 22. She has 2 children 14 years old and 22 years old. 14 years old has been removed from her custody by typhus due to substance use. Her height is 4 feet 11 inches and weight is 145 pounds. Current Medications: Active Medications Generic Name Dose Route Start Last Admin Trade Name Freq PRN Reason Stop Dose Admin Acetaminophen 650 mg 10/31/16 17:19 Tylenol 325mg Tab PO Q6 PRN Headache Escitalopram Oxalate 10 mg 11/01/16 10:00 Lexapro PO DAILY OSWALDO Ibuprofen 600 mg 10/31/16 17:19 10/31/16 17:56 Motrin Tab PO 600 mg Q6 PRN Administration Pain, moderate (4-7) Trazodone HCl 150 mg 10/31/16 01:39 Desyrel PO HS PRN Insomnia Past Psychiatric History - Past Psychiatric History Previous Treatment History: Inpatient History of Abuse: None reported History of ETOH/Drug Use: See HPI History of Family Illness: Reported her nephew has history of substance use Pertinent Medical Hx (Current Medical&Sleep Prob, Allergies): Allergies Allergy/AdvReac Type Severity Reaction Status Date / Time sertraline [From Zoloft] Allergy Intermediate RASH Verified 10/31/16 12:39 traZODone [Desyrel] 100 mg PO HS #30 tab 09/28/16 Ferrous Fumarate [Ferrocite] 2 tab PO PRN PRN 10/30/16 Asthma Review of Systems - Psychiatric Psychiatric: Depression Mental Status Examination - Personal Presentation Personal Presentation: Looks stated age - Affect Affect: Depressed - Motor Activity Motor Activity: Calm - Reliability in Providing Information Reliability in Providing Information: Fair - Speech Speech: Organized - Mood Mood: Depressed - Formal Thought Process Formal Thought Process: No Impairment - Hallucinations/Delusions Hallucinations: Other Delusions: Other (None reported) - Obsessions/Compulsions Obsessions: None Compulsions: None - Cognitive Functions Orientation: Person, Place, Situation, Time Sensorium: Alert Attention/Concentration: Attentive Abstract Thinking: [place] Estimate of Intelligence: Average Judgement: Intact, as evidence by: Insight regarding need for hospitalization Memory: Recent intact, as evidence by: 3/3 object recall, Remote intact, as evidenced by: Ability to recall historical events - Risk Risk: Withdrawal, Diminished functioning - Strength & Assets Inventory Strength & Assets Inventory: Family support, Cooperative - Limitations Limitations: Other DSM 5 DX - DSM 5 DSM 5 Diagnosis: Major depressive disorder recurrent severe Opiate use disorder Sedative hypnotic use disorder - Recommended/Plan of Treatment Treatment Recommendations and Plan of Treatment: Patient education Supportive therapy Patient signed consent for release of information to speak with the family. Called the family and family confirms the above. Patient has appointment at [facility] for 28 day stay, on Wednesday, November 02 at 9 AM. We will evaluate the patient again tomorrow and if stable will discharge patient with the family so that patient can go to [facility] next day for treatment. We'll start S-Citalopram or depression We'll continue rest of the treatment as before Projected ELOS: 4-5 days - Smoking Cessation Smoking Cessation Initiated: No Reason for not providing: Patient doesn't smoke cigarettes
[2016-11-01 08:37] VITALS: RESP 20; TEMP 98.3
[2016-11-01 16:24] VITALS: BP 131/84; PULSE 78
--- NOTE | 2016-11-01 17:42 | PCM.PYCHDC ---
Mental Status Examination - Mental Status Examination Orientation: Person, Place, Situation, Time Memory: Intact Mood: Neutral Affect: Other (Appropriate) Speech: Appropriate Attention: WNL Concentration: WNL Association: WNL Fund of Knowledge: WNL Formal Thought Process: No Impairment Description of patient's judgement and insight: Fair Psychotic Thoughts and Behaviors: None Suicidal Ideation: No Current Homicidal Ideation?: No Discharge Summary - Discharge Note Reason for Hospitalization: Major depressive disorder Opiate use disorder Laboratory Data: Reviewed Consultations:: List each consultation separately and include: 1. Reason for request. 2. Findings. 3. Follow-up Summary of Hospital Course include:: 1. Description of specific treatment plan utilized for patients during their course of treatmen. 2. Summarize the time- course for resolution of acute symptoms and/or regressed behaviors. 3. Describe issues identified and worked on during hospitalization. 4. Describe medication utilized. 5. Describe medical problems identified and treated. 6. Reassessment of suicide risk Summary of Hospital Course: Patient is a 41 years old, , employed, [place] female who was admitted due to suspected overdose on her sleeping medications, patient has history of major depressive disorder and also opiate use disorder started following up at [facility]. Patient reported that she is feeling depressed pressed, was unable to sleep for last 3 days and she took 3 trazodone age of 150 mg yesterday morning in order to sleep. Family found the patient unstable, staggering, difficulty sleeping and was brought to ER for evaluation and was admitted. Patient reported decrease appetite and lost about 10 pounds in 1 week due to not eating. Denied any suicidal or homicidal ideations or any attempts. Denied any psychotic or manic symptoms. But has history of previous detox from opiate pain medications. Patient was also taking Fioricet according to history patient was taking up to 10 Fioricet daily patient denied. Patient has history of 3 left foot surgeries, 2 C-sections and cholecystectomy. Patient was born in [facility], moved to [facility] at the age of 12 with family. 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 She is and lives with her older son who is 22. She has 2 children 14 years old and 22 years old. 14 years old has been removed from her custody by typhus due to substance use. Her height is 4 feet 11 inches and weight is 145 pounds. During her stay in the hospital, patient was started on Lexapro, trazodone and other when necessary medications. With the patient's permission, family was contacted and got the collaterals from the family. Patient is stable. As patient has appointment at [facility] tomorrow, will discharge patient today. Patient and family both agreed for the discharge today. At the time of evaluation and discharge, patient was awake alert oriented 3, had no delusions , no auditory or visual hallucinations, no suicidal ideations or homicidal ideations. Patient was discharged in a stable condition. - Final Diagnosis (DSM 5) Condition upon Discharge: FAIR Disposition: HOME/ ROUTINE Follow-up Treatment Plan: [facility] - Smoking Cessation Smoking Cessation Medication prescribed: No Reason for not providing: Patient doesn't smokes - Antipsychotic Medications Pt discharged on 2 or more routine antipsychotic medications: No
== END 2016-11-01 18:00 | disposition home or self-care (01) | DRG 430 ==
LOC: C.ER 19:14 → C.5E 10-31 00:28
DX: F33.2 Major depressive disorder, recurrent severe without psychotic features (principal); F13.10 Sedative, hypnotic or anxiolytic abuse, uncomplicated; F11.10 Opioid abuse, uncomplicated

== ENCOUNTER 2017-01-02 10:16 | Emergency (ER) | payer MEDICAID, OTHER ==
[2017-01-02 10:32] VITALS: TEMP 98.4
[2017-01-02 11:04] LABS: BASO % 0.3 % (0.0-2.0); EOS % 0.2 % (0.0-4.0); HEMOGLOBIN 12.3 g/dL (11.0-16.0); LYMPH # 1.7 K/uL (1.0-4.3); LYMPH % 28.3 % (20.0-40.0); MEAN CORPUSCULAR HEMOGLOBIN 27.7 pg (27.0-31.0); MEAN CORPUSCULAR HGB CONC 32.6 g/dL (33.0-37.0); MEAN PLATELET VOLUME 8.8 fL (7.2-11.7); MONO # 0.3 K/uL (0.0-0.8); MONO % 5.1 % (0.0-10.0); NEUT # 4.1 K/uL (1.8-7.0); NEUT % 66.1 % (50.0-75.0); RBC 4.44 Mil/uL (3.80-5.20); RED CELL DISTRIBUTION WIDTH 14.2 % (11.5-14.5); WHITE BLOOD COUNT 6.1 K/uL (4.8-10.8)
[2017-01-02 11:11] LABS: HCG,QUALITATIVE URINE NEGATIVE (NEGATIVE)
[2017-01-02 11:29] LABS: BENZODIAZEPINES, UR NEGATIVE (NEGATIVE)
[2017-01-02] MEDS ORDERED: Apap-Butalbital-Caffeine 325-50-40mg Tab PO STA (11:29)
[2017-01-02 11:32] LABS: ALBUMIN 3.8 g/dL (3.5-5.0); PHENCYCLIDINE, UR NEGATIVE (NEGATIVE)
[2017-01-02 11:35] LABS: AST/SGOT 18 U/L (14-36); GFR AFRICAN-AMERICAN > 60; GFR NON-AFRICAN AMERICAN > 60
[2017-01-02 11:36] LABS: ALB/GLOB RATIO 1.1 (1.0-2.1); ALT/SGPT 27 U/L (9-52); BLOOD UREA NITROGEN 10 mg/dL (7-17); CALCIUM 8.8 mg/dl (8.6-10.4)
[2017-01-02] MEDS ORDERED: Apap-Butalbital-Caffeine 325-50-40mg Tab ONE (11:38)
[2017-01-02 11:45] LABS: SQUAMOUS EPITHIAL 1 /hpf (0-5); URINE BACTERIA OCC (<OCC); URINE BILIRUBIN NEGATIVE (NEGATIVE); URINE BLOOD NEGATIVE (NEGATIVE); URINE CLARITY Clear (Clear); URINE COLOR Straw (YELLOW); URINE GLUCOSE (UA) NORMAL (Normal); URINE LEUKOCYTE ESTERASE TRACE Leu/uL (Negative); URINE NITRATE NEGATIVE (NEGATIVE); URINE PROTEIN NEGATIVE (NEGATIVE); URINE UROBILINOGEN NORMAL mg/dL (0.2-1.0)
--- NOTE | 2017-01-02 11:52 | C.PDOC ---
History Of Present Illness 41 yr old female with PMHx of major depression, presents to the ER stating she has been feeling depressed for the past 1 week. Patient states she does not take depression medication because she is afraid of withdrawal symptoms. Patient denies SI, HI, hallucinations, chest pain or SOB. Time Seen by Provider: 01/02/17 10:33 Chief Complaint (Nursing): Psychiatric Evaluation History Per: Patient History/Exam Limitations: no limitations Onset/Duration Of Symptoms: Days (1 week) Current Symptoms Are (Timing): Still Present Suicide/Self Injury Attempted (Context): None Modifying Factor(s): None Severity: None Past Medical History Reviewed: Historical Data, Nursing Documentation, Vital Signs Vital Signs: Last Vital Signs Temp 98.4 F 01/02/17 10:27 Pulse 70 01/02/17 12:55 Resp 16 01/02/17 12:55 BP 132/77 01/02/17 12:55 Pulse Ox 99 01/02/17 12:55 - Medical History PMH: Anemia, Anxiety, Asthma (Combivent Inhaler), Depression, Hypothyroidism, Migraine (DR. NEAL PUT PT ON FIORICET BID) Surgical History: Cholecystectomy - [facility] Procedures ANESTH INJEC PERIPH NERV (07/19/13) CERVICAL SPINE X-RAY NEC (07/19/13) DETOXIFICATION SERVICES FOR SUBSTANCE ABUSE TREATMENT (09/21/16) GROUP RECYCLING OR RUBBISH COLLECTOR FOR SUBSTANCE ABUSE TREATMENT, PSYCHOEDUCATION (08/19/16) GROUP RECYCLING OR RUBBISH COLLECTOR FOR SUBSTANCE ABUSE, COGNITIVE BEHAVIORAL (08/19/16) IMMOBILIZ/WOUND ATTN NEC (01/05/13) INJECT STEROID (07/19/13) INJECT/INFUSE NEC (09/19/14) LAPAROSCOPIC CHOLECYSTECTOMY (09/01/13) MEDS MGMT FOR SUBSTANCE ABUSE TREATMENT, METHADONE MAINT (09/21/16) PERIPH NERVE INJECT NEC (07/19/13) PSYCHIA INTERV/EVAL NEC (06/26/13) Family History: States: No Known Family Hx - Social History Hx Tobacco Use: No Hx Alcohol Use: Yes Hx Substance Use: No - Immunization History Hx Tetanus Toxoid Vaccination: Yes Hx Influenza Vaccination: Yes (03/2017) Hx Pneumococcal Vaccination: Yes (03/2017) Review Of Systems Except As Marked, All Systems Reviewed And Found Negative. Cardiovascular: Negative for: Chest Pain Respiratory: Negative for: Shortness of Breath Psych: Positive for: Depression. Negative for: Psychosis, Suicidal ideation Physical Exam - Physical Exam Appears: Non-toxic, No Acute Distress Skin: Warm, Dry, No Rash Head: Atraumatic, Normacephalic Chest: Symmetrical, No Tenderness Cardiovascular: Rhythm Regular, No Murmur Respiratory: Normal Breath Sounds, No Rales, No Rhonchi, No Stridor, No Wheezing Extremity: Normal ROM, No Swelling Neurological/Psych: Oriented x3, Normal Speech, Normal Motor ED Course And Treatment - Laboratory Results Result Diagrams: 01/02/17 11:01 01/02/17 11:01 O2 Sat by Pulse Oximetry: 100 (RA ) Pulse Ox Interpretation: Normal Medical Decision Making Medical Decision Making: PLAN: * Alcohol Serum * Drug Screen * CBC * CMP * HCG * Urinalysis * Fioricet PO Disposition - Disposition Referrals: Jesús Dumont MD [Staff Provider] - Disposition: HOME/ ROUTINE Disposition Time: 12:25 Condition: GOOD Additional Instructions: Thank you for letting us take care of you today. Your provider was Dr. Gong. You were treated for depression and migraine headache. The emergency medical care you received today was directed at your acute symptoms. If you were prescribed any medication, please fill it and take as directed. It may take several days for your symptoms to resolve. Return to the Emergency Department if your symptoms worsen, do not improve, or if you have any other problems. Please contact your doctor or call one of the physicians/clinics you have been referred to that are listed on the Patient Visit Information form that is included in your discharge packet. Bring any paperwork you were given at discharge with you along with any medications you are taking to your follow up visit. Our treatment cannot replace ongoing medical care by a primary care provider (PCP) outside of the emergency department. Thank you for allowing the [facility] team to be part of your care today. Follow up with your psychiatrist on Wednesday morning. Take your medication as directed. Prescriptions: Acetaminophen/Butalbital/Caf [Fioricet] 1 tab PO Q8 PRN #10 tab PRN Reason: migrane Instructions: Migraine Headache (ED), Depression (ED) Forms: [employer] (Guamanian) - Clinical Impression Clinical Impression: Moderate major depression, single episode, Migraine - Scribe Statement The provider has reviewed the documentation as recorded by the Scribe Alexsandra Villasenor Provider Attestation: All medical record entries made by the Cedric were at my direction and personally dictated by me. I have reviewed the chart and agree that the record accurately reflects my personal performance of the history, physical exam, medical decision making, and the department course for this patient. I have also personally directed, reviewed, and agree with the discharge instructions and disposition.
[2017-01-02 12:56] VITALS: BP 132/77; PULSE 70; RESP 16
[2017-01-02 13:04] LABS: BARBITURATES, UR POSITIVE (NEGATIVE); OPIATES, UR POSITIVE (NEGATIVE)
[2017-01-02 18:27] VITALS: O2SAT 100
== END 2017-01-02 12:55 | disposition home or self-care (01) ==
LOC: C.ER 10:16
DX: G43.909 Migraine, unspecified, not intractable, without status migrainosus (principal); F32.1 Major depressive disorder, single episode, moderate

== ENCOUNTER 2017-12-27 10:14 | Emergency (ER) | payer MEDICAID, OTHER ==
[2017-12-27 10:57] VITALS: RESP 18; TEMP 98.1
--- NOTE | 2017-12-27 11:06 | C.PDOC ---
History Of Present Illness 42-year-old female presents to the ED with complaints of productive cough with green phlegm worsening over the past 4 days. Associated with pain to her back and chest when coughing. She also reports feeling slightly short of breath and tired. Has a history of asthma and migraines, although she denies any recent hospitalizations for her asthma. Additionally, patient complains of a headache, described as a pressure behind her eyes and ears. Otherwise she denies any nausea, vomiting, diarrhea, visual changes, palpitations, dizziness, or other complaints. She admits to intermittent chills and subjective fever, but did not take her temperature at home. Patient usually takes Fioricet for her migraines but did not take any today. Time Seen by Provider: 12/27/17 10:50 Chief Complaint (Nursing): Chest Pain History Per: Patient History/Exam Limitations: no limitations Onset/Duration Of Symptoms: Days Current Symptoms Are (Timing): Still Present Past Medical History Reviewed: Historical Data, Nursing Documentation, Vital Signs Vital Signs: Last Vital Signs Temp 98.1 F 12/27/17 10:45 Pulse 67 12/27/17 12:47 Resp 18 12/27/17 12:47 BP 125/83 12/27/17 12:47 Pulse Ox 100 12/27/17 12:47 - Medical History PMH: Anemia, Anxiety, Asthma, Depression, Migraine, Pneumonia Denies: Diabetes, Hepatitis, HIV, HTN, Hypothyroidism, Chronic Kidney Disease , Seizures, Sexually Transmitted Disease Surgical History: Cholecystectomy - [facility] Procedures ANESTH INJEC PERIPH NERV (07/19/13) CERVICAL SPINE X-RAY NEC (07/19/13) DETOXIFICATION SERVICES FOR SUBSTANCE ABUSE TREATMENT (09/21/16) GROUP TWISTER FRAME TENDER FOR SUBSTANCE ABUSE TREATMENT, PSYCHOEDUCATION (08/19/16) GROUP TWISTER FRAME TENDER FOR SUBSTANCE ABUSE, COGNITIVE BEHAVIORAL (08/19/16) GROUP PSYCHOTHERAPY (01/03/17) IMMOBILIZ/WOUND ATTN NEC (01/05/13) INDIVIDUAL PSYCHOTHERAPY, SUPPORTIVE (01/03/17) INJECT STEROID (07/19/13) INJECT/INFUSE NEC (09/19/14) LAPAROSCOPIC CHOLECYSTECTOMY (09/01/13) MEDICATION MANAGEMENT (01/03/17) MEDS MGMT FOR SUBSTANCE ABUSE TREATMENT, METHADONE MAINT (09/21/16) PERIPH NERVE INJECT NEC (07/19/13) PSYCHIA INTERV/EVAL NEC (06/26/13) Family History: States: Unknown Family Hx - Social History Hx Tobacco Use: No Hx Alcohol Use: No Hx Substance Use: Yes (opiates) - Immunization History Hx Tetanus Toxoid Vaccination: Yes Hx Influenza Vaccination: Yes (03/2017) Hx Pneumococcal Vaccination: Yes (03/2017) Review Of Systems Except As Marked, All Systems Reviewed And Found Negative. Constitutional: Positive for: Fever, Chills, Other (Fatigue) Eyes: Negative for: Vision Change ENT: Positive for: Ear Pain Cardiovascular: Positive for: Chest Pain (when coughing). Negative for: Palpitations Respiratory: Positive for: Cough, Shortness of Breath, Sputum. Negative for: Hemoptysis Gastrointestinal: Positive for: Abdominal Pain. Negative for: Nausea, Vomiting , Diarrhea Musculoskeletal: Positive for: Back Pain (when coughing) Neurological: Positive for: Headache. Negative for: Dizziness Physical Exam - Physical Exam Appears: Non-toxic, No Acute Distress Skin: Warm, Dry, No Rash Head: Atraumatic, Normacephalic Eye(s): bilateral: Normal Inspection, PERRL, EOMI Ear(s): Bilateral: TM Dull Oral Mucosa: Moist Throat: Normal, No Erythema, No Exudate Neck: Normal ROM Chest: Symmetrical Cardiovascular: Rhythm Regular, No Murmur Respiratory: No Accessory Muscle Use, No Rales, No Rhonchi, Wheezing (mild expiratory wheezing bilaterally) Gastrointestinal/Abdominal: Soft, No Tenderness, No Distention Back: Normal Inspection, No CVA Tenderness, No Vertebral Tenderness Extremity: Bilateral: Atraumatic, No Pedal Edema, Normal Color And Temperature, Normal ROM Pulses: Left Radial: Normal, Right Radial: Normal Neurological/Psych: Oriented x3, Normal Speech ED Course And Treatment - Laboratory Results Result Diagrams: 12/27/17 11:11 12/27/17 11:54 ECG: Interpreted By Me, Viewed By Me ECG Rhythm: Sinus Rhythm ECG Interpretation: No Acute Changes Rate From EC O2 Sat by Pulse Oximetry: 99 (room air) Pulse Ox Interpretation: Normal Medical Decision Making Medical Decision Making: Initial Impression: Productive cough, chest pain, headache, chills Differential diagnosis includes but is not limited to: Asthma, pneumonia, bronchitis, upper airway infection/obstruction, CHF Plan: * EKG * CMP * CBC * Urine preg * Urinalysis * Chest x-ray * Duoneb 3 ml INH * Peak Flow pre/post neb * Fioricet 1 tab PO Progress: Labs reviewed and shows no leukocytosis, bandemia or other abnormality. Urine clear Xray viewed by me and radiologist shows Right lower lobe infiltrate. Patient given Zithromax. On re-evaluation, patient has no fever and is resting comfortably in no distress. She has no wheezing, chest pain, or SOB. Oxygen saturation is 99% on room air. Patient is stable for discharge and advised to follow up with their physician in 1-2 days Disposition Counseled Patient/Family Regarding: Studies Performed, Diagnosis, Need For Followup, Rx Given - Disposition Referrals: Davon Robertson MD [Medical Doctor] - Disposition: HOME/ ROUTINE Disposition Time: 12:31 Condition: STABLE Additional Instructions: Follow up with your primary medical doctor or clinic in 2-5 days for further evaluation. Take medications as prescribed. Return to the emergency department at any time if symptoms persist or worsen. Prescriptions: Acetaminophen/Butalbital/Caf [Fioricet] 1 tab PO TID PRN #20 tab PRN Reason: Headache Azithromycin [Zithromax] 250 mg PO DAILY #4 tab Instructions: Bacterial Pneumonia (ED) Forms: [employer] (Bahamian) - POA Present On Arrival: None - Clinical Impression Clinical Impression: Right lower lobe pneumonia - PA / [employer] / Resident Statement MD/DO has reviewed & agrees with the documentation as recorded. - Scribe Statement The provider has reviewed the documentation as recorded by the Scribe (Katerina Carlson) All medical record entries made by the Scribe were at my direction and personally dictated by me. I have reviewed the chart and agree that the record accurately reflects my personal performance of the history, physical exam, medical decision making, and the department course for this patient. I have also personally directed, reviewed, and agree with the discharge instructions and disposition.
[2017-12-27 11:19] LABS: BASO # 0.1 K/uL (0.0-0.2); BASO % 1.2 % (0.0-2.0); EOS % 0.5 % (0.0-4.0); HEMOGLOBIN 10.7 g/dL (11.0-16.0); LYMPH # 1.9 K/uL (1.0-4.3); LYMPH % 27.8 % (20.0-40.0); MEAN CELL VOLUME 83.3 fL (81.0-99.0); MEAN CORPUSCULAR HEMOGLOBIN 27.1 pg (27.0-31.0); MEAN CORPUSCULAR HGB CONC 32.6 g/dL (33.0-37.0); MEAN PLATELET VOLUME 8.4 fL (7.2-11.7); MONO # 0.4 K/uL (0.0-0.8); MONO % 6.6 % (0.0-10.0); NEUT # 4.2 K/uL (1.8-7.0); NEUT % 63.9 % (50.0-75.0); NRBC % 0.1 % (0.0-2.0); RBC 3.96 Mil/uL (3.80-5.20); RED CELL DISTRIBUTION WIDTH 16.2 % (11.5-14.5); WHITE BLOOD COUNT 6.7 K/uL (4.8-10.8)
[2017-12-27 11:22] LABS: HCG,QUALITATIVE URINE NEGATIVE (NEGATIVE)
[2017-12-27 11:24] LABS: SQUAMOUS EPITHIAL 2 /hpf (0-5); URINE BACTERIA MOD (<OCC); URINE BILIRUBIN NEGATIVE (NEGATIVE); URINE BLOOD 1+ (NEGATIVE); URINE CLARITY Clear (Clear); URINE COLOR Straw (YELLOW); URINE GLUCOSE (UA) NORMAL (Normal); URINE LEUKOCYTE ESTERASE NEG Leu/uL (Negative); URINE PROTEIN NEGATIVE (NEGATIVE); URINE UROBILINOGEN NORMAL mg/dL (0.2-1.0)
[2017-12-27] MEDS ORDERED: Apap-Butalbital-Caffeine 325-50-40mg Tab ONE (11:30)
[2017-12-27] MEDS ORDERED: Albuterol 0.083% Inhal Sol (2.5 mg/3 mL) UD ONE (11:30)
[2017-12-27] MEDS: Apap-Butalbital-Caffeine 325-50-40mg Tab PO STA (11:31)
[2017-12-27] MEDS ORDERED: Albuterol-Ipratrop 3 mg / 0.5 (3 ml) UD ONE (11:40)
[2017-12-27] MEDS ORDERED: Ipratropium 0.02% Inhal Soln (0.5 mg/2.5 ml) UD IH ONE (11:41)
[2017-12-27] MEDS: Albuterol-Ipratrop 3 mg / 0.5 (3 ml) UD INH STA (11:42)
--- NOTE | 2017-12-27 12:06 | RAD ---
Date of service: 12/27/2017 HISTORY: SOB, COUGH COMPARISON: No prior. TECHNIQUE: Chest PA and lateral FINDINGS: LUNGS: Right lower lobe infiltrate. PLEURA: No significant pleural effusion identified. No pneumothorax apparent. CARDIOVASCULAR: Normal. OSSEOUS STRUCTURES: No significant abnormalities. VISUALIZED UPPER ABDOMEN: Normal. OTHER FINDINGS: None. IMPRESSION: Right lower lobe infiltrate.
[2017-12-27 12:12] LABS: ALB/GLOB RATIO 1.1 (1.0-2.1); ALBUMIN 3.9 g/dL (3.5-5.0); ALT/SGPT 29 U/L (9-52); AST/SGOT 18 U/L (14-36); BLOOD UREA NITROGEN 6 mg/dL (7-17); CALCIUM 9.1 mg/dl (8.6-10.4); GFR AFRICAN-AMERICAN > 60; GFR NON-AFRICAN AMERICAN > 60
[2017-12-27 14:31] VITALS: BP 125/83; PULSE 67
[2017-12-27 15:01] VITALS: O2SAT 99
--- NOTE | 2017-12-28 14:20 | CARD ---
APPROVED REPORT Date of service: 12/27/2017 EKG Measurement Heart [id number] <Conclusion> Normal sinus rhythm Minimal voltage criteria for LVH, may be normal variant Borderline ECG
== END 2017-12-27 12:48 | disposition home or self-care (01) ==
LOC: C.ER 10:14
DX: J18.9 Pneumonia, unspecified organism (principal); J45.909 Unspecified asthma, uncomplicated; Z87.891 Personal history of nicotine dependence

== ENCOUNTER 2017-12-29 11:52 | Emergency (ER) | payer OTHER ==
[2017-12-29 12:07] VITALS: BP 111/72; PULSE 78; TEMP 98.6; O2SAT 100
[2017-12-29 12:13] VITALS: RESP 16
[2017-12-29] MEDS ORDERED: Albuterol-Ipratrop 3 mg / 0.5 (3 ml) UD INH STA (12:21)
--- NOTE | 2017-12-29 13:09 | C.PDOC ---
History Of Present Illness 42 y/o female presents to the ED complaining of persistent cough and wheezing. Patient was evaluated here on 12/27 for same complaint, chest x-ray showed RLL pneumonia, and she was discharged home with Maik. States she has taken 2 days of the z-pack course. Otherwise she denies any sputum production, fever, chills , SOB, or dizziness. Patient admits to having chest wall discomfort with coughing, and wheezing. Reports she ran out of nebulizer meds at home. Time Seen by Provider: 12/29/17 12:16 Chief Complaint (Nursing): Shortness Of Breath History Per: Patient History/Exam Limitations: no limitations Onset/Duration Of Symptoms: Days Current Symptoms Are (Timing): Still Present Initiating Event: Out Of Medications Exacerbating Factor(s): Coughing Past Medical History Reviewed: Historical Data, Nursing Documentation, Vital Signs Vital Signs: Last Vital Signs Temp 98.6 F 12/29/17 12:00 Pulse 78 12/29/17 12:00 Resp 16 12/29/17 12:08 BP 111/72 12/29/17 12:00 Pulse Ox 100 12/29/17 13:09 - Medical History PMH: Anemia, Anxiety, Asthma, Depression, Migraine, Pneumonia Denies: Diabetes, Hepatitis, HIV, HTN, Hypothyroidism, Chronic Kidney Disease , Seizures, Sexually Transmitted Disease Surgical History: Cholecystectomy - [facility] Procedures ANESTH INJEC PERIPH NERV (07/19/13) CERVICAL SPINE X-RAY NEC (07/19/13) DETOXIFICATION SERVICES FOR SUBSTANCE ABUSE TREATMENT (09/21/16) GROUP BUYING AGENT FOR SUBSTANCE ABUSE TREATMENT, PSYCHOEDUCATION (08/19/16) GROUP BUYING AGENT FOR SUBSTANCE ABUSE, COGNITIVE BEHAVIORAL (08/19/16) GROUP PSYCHOTHERAPY (01/03/17) IMMOBILIZ/WOUND ATTN NEC (01/05/13) INDIVIDUAL PSYCHOTHERAPY, SUPPORTIVE (01/03/17) INJECT STEROID (07/19/13) INJECT/INFUSE NEC (09/19/14) LAPAROSCOPIC CHOLECYSTECTOMY (09/01/13) MEDICATION MANAGEMENT (01/03/17) MEDS MGMT FOR SUBSTANCE ABUSE TREATMENT, METHADONE MAINT (09/21/16) PERIPH NERVE INJECT NEC (07/19/13) PSYCHIA INTERV/EVAL NEC (06/26/13) Family History: States: Unknown Family Hx - Social History Hx Tobacco Use: No Hx Alcohol Use: No Hx Substance Use: No - Immunization History Hx Tetanus Toxoid Vaccination: Yes Hx Influenza Vaccination: Yes (03/2017) Hx Pneumococcal Vaccination: Yes (03/2017) Review Of Systems Except As Marked, All Systems Reviewed And Found Negative. Constitutional: Negative for: Fever, Chills Eyes: Negative for: Vision Change Cardiovascular: Positive for: Chest Pain (when coughing) Respiratory: Positive for: Cough, Wheezing. Negative for: Shortness of Breath, Sputum Gastrointestinal: Negative for: Nausea, Vomiting, Abdominal Pain, Diarrhea Musculoskeletal: Positive for: Back Pain (when coughing) Neurological: Negative for: Weakness, Numbness, Headache, Dizziness Physical Exam - Physical Exam Appears: Non-toxic, No Acute Distress Skin: Warm, Dry, No Rash Head: Atraumatic, Normacephalic Eye(s): bilateral: Normal Inspection, PERRL, EOMI Oral Mucosa: Moist Neck: Normal ROM, Supple Chest: Symmetrical, Tenderness (Positionally reproducible pain to upper chest wall and upper back) Cardiovascular: Rhythm Regular, No Murmur Respiratory: No Accessory Muscle Use, No Rales, Rhonchi (scattered), Wheezing ( scattered), Other (Minimal egophony in the right lower lung field) Gastrointestinal/Abdominal: Soft, No Tenderness Extremity: Bilateral: Atraumatic, Normal Color And Temperature, Normal ROM Pulses: Left Radial: Normal, Right Radial: Normal Neurological/Psych: Oriented x3, Normal Speech ED Course And Treatment O2 Sat by Pulse Oximetry: 100 (RA) Pulse Ox Interpretation: Normal - Radiology CXR: Interpreted by Me CXR Interpretation: Yes: Infiltrates (resolving RLL c/w prior, no pnx) Reevaluation Time: 13:07 Reassessment Condition: Improved Medical Decision Making Medical Decision Making: Impression: Persistent cough, h/o PNA Plan: Obtained chest x-ray. Patient treated with PO prednisone, Pepcid, and duonebs x2. Impression: resolving RLL PNA (h/o PNA) simultaneous exacerbation of bronchitis/asthma CXR improving pt ran out of nebs @ home- refilled brief steroid burst Disposition Doctor Will See Patient In The: Office Counseled Patient/Family Regarding: Studies Performed, Diagnosis - Disposition Referrals: Davon Robertson MD [Medical Doctor] - Disposition: HOME/ ROUTINE Disposition Time: 13:08 Condition: GOOD Additional Instructions: sigue Prednisone 40 mg por 4 sotelo mas- Sigue Tratamientos de Duoneb 4-5 veces al aminata- siempre con DOS ampulas de Duoneb Mas tratamientos en la noche sebastien necessario. Tylenol o' Ibuprofeno sebastien necessario para fiebres. Sigue con tian medico en 2-3 sotelo sebastien necessario. Prescriptions: Albuterol/Ipratropium [Duoneb 3 MG/3 Ml-0.5 MG/3 Ml 3 Ml] 6 ml IH Q4H PRN #100 neb PRN Reason: asthma Prednisone [Deltasone] 40 mg PO DAILY #8 tablet Instructions: Asthma, Adult (DC), Acute Bronchitis Forms: [employer] (Swedish) Print Language: YORUBA - Clinical Impression Clinical Impression: Reactive airway disease with wheezing - Scribe Statement The provider has reviewed the documentation as recorded by the Scribe Katerina Carlson Provider Attestation: All medical record entries made by the Scribe were at my direction and personally dictated by me. I have reviewed the chart and agree that the record accurately reflects my personal performance of the history, physical exam, medical decision making, and the department course for this patient. I have also personally directed, reviewed, and agree with the discharge instructions and disposition.
--- NOTE | 2017-12-29 13:14 | RAD ---
HISTORY: COMPARISON: 12/27/2017 TECHNIQUE: Chest PA and lateral FINDINGS: LINES AND TUBES: None. LUNG AND PLEURA: The lungs are well inflated and the left lung base clear. There is persistent airspace disease in the right lower lobe with mild improvement. No pleural effusion or pneumothorax. HEART AND MEDIASTINUM: The heart is not enlarged. The hilar and mediastinal contours are within normal limits. SKELETAL STRUCTURES: The bony structures are within normal limits for the patient's age. VISUALIZED UPPER ABDOMEN: Normal. OTHER FINDINGS: None. IMPRESSION: Improving right lower lobe pneumonia.
== END 2017-12-29 13:31 | disposition home or self-care (01) ==
LOC: C.ER 11:52
DX: J45.909 Unspecified asthma, uncomplicated (principal)